=== PATIENT | male | born 2000 | race African-American/Black ===

== ENCOUNTER 2025-06-19 23:06 | Emergency (ER) | payer MEDICAID, OTHER ==
[~2025-06-19] VITALS: Ht 170.2 cm; Wt 71.2 kg
--- NOTE | 2025-06-19 23:24 | ED.PDOC ---
History of Present Illness HPI Comments 25 year-old male presents to the ED with a chief complaint of suprapubic abdominal pain with associated symptoms of dysuria and hematuria as of today. Patient reports noticing blood clots and white matter in urinary output. Patient additionally reports noticing frequent abscesses, as of recently, with one cu rrently located on his buttocks. Patient has no further complaints or modifying factors at this time. Patient denies symptoms of fever, chills, N/V/D, or constipation. REVIEW OF SYSTEMS: General: No fever, no chills, or fatigue HEENT: No sore throat, no earache, no congestion, no neck pain. Cardiac: No chest pain. No palpitations. Lungs: No shortness of breath, no cough. GI: No nausea, no vomiting, no diarrhea, no constipation, + abdominal pain : + dysuria + hematuria. Musculoskeletal: No joint pain , no joint swelling, no extremity edema. Skin: No rash, no itching. Neuro: No headache, no dizziness, no weakness (And as sated in HPI) PHYSICAL EXAM: General: Awake, alert and oriented. No acute distress. Skin: Skin in warm, dry and intact. Appropriate color for ethnicity. HEENT: The head is normocephalic and atraumatic. Conjunctivae are clear without exudates or hemorrhage. Sclera is non-icteric. Eyelids are normal in appearance without swelling or lesions. Oral mucosa is pink and moist Neck: The neck is supple with normal range of motion. No JVD. Cardiac: Heart rate and rhythm are normal. No murmurs, gallops, or rubs are auscultated. Respiratory: No signs of respiratory distress. Lung sounds are clear in all lobes bilaterally without rales, rhonchi, or wheezes. Abdominal: + suprapubic abdominal tenderness. Abdomen is soft, without distention, guarding or rigidity. Bowel sounds are present and normoactive in all four quadrants. Extremities: Lower extremities without edema. Neurological: The patient is awake, alert and oriented to person, place, and time with normal speech. Speech is clear. There is no facial asymmetry. Psychiatric: Appropriate mood and affect. Good judgement and insight. Chief Complaint: Abdominal Pain Time Seen by MD: 23:24 Reviewed Notes: Medications, Allergies Allergies: Coded Allergies: NO KNOWN ALLERGIES (Unverified , 06/19/25) Information Source: Patient Mode of Arrival: Ambulatory Severity: Moderate Timing: Hours Duration: Since onset Past Medical History PAST MEDICAL HISTORY: Denies Surgical History: Denies all surgeries Family History Family History: Reviewed,noncontributory to illness, No family hx of Cancer, No family hx of DM, No family hx of Heart juan, No family hx of HTN, No family hx ofKidney juan, No family hx of Liver juan, No family hx of Lung juan, No family hx of Stroke Social History Smoker: Non-Smoker Alcohol: Denies ETOH Use Drugs: Denies Drug Use Lives In: Home Was a procedure done? Was a procedure done?: No Differential Dx Considerations may include: Differential diagnoses considered include: Abdominal aortic aneurysm, LA, esophageal rupture, intestinal obstruction, mesenteric ischemia, perforated viscus or solid organ rupture, CHF with hepatomegaly, pneumonia, abscess, appendicitis, biliary disease, diverticulitis, gastritis, gastroenteritis, hepatitis, hernia, inflammatory bowel disease, pancreatitis, peptic ulcer disease, urinary tract infection, ureteral colic, constipation, GERD, irritable syndrome, abdominal wall pain, nonspecific abdominal pain, herpes zoster, nephrolithiasis. [ ]Also ruptured ectopic , ovarian torsion/cyst, tubo- ovarian abscess, PID, endometriosis, mittleschmerz. X-Ray, Labs, Meds, VS Vital Signs Date Time Temp Pulse Resp B/P (MAP) Pulse Ox O2 Delivery O2 Flow Rate FiO2 06/20/25 00:52 18 06/20/25 00:52 98.2 85 18 117/76 (90) 98 98.2 06/19/25 23:09 98.4 90 16 109/86 96 98.4 Lab Test 06/20/25 00:51 06/19/25 23:30 Range/Units Urine Color Light-brown Yellow Urine Clarity Ex.turbid Clear Urine pH 6.0 5.0-9.0 Urine Specific Rollins 1.007 1.001-1.035 Urine Protein 1+ H Negative Urine Ketones Negative Negative Urine Blood 3+ H Negative /uL Urine Nitrite Negative Negative Urine Bilirubin Negative Negative Urine Urobilinogen Normal Negative mg/dL Urine Leukocyte Esterase 3+ Negative /uL Urine RBC 148 0 - 3 /hpf Urine WBC Clumps Present None Seen /hpf Urine Microscopic WBC 2004 H 0-3 /HPF Urine Squamous Epithelial Cells None seen <5 /hpf Urine Bacteria None seen None Seen /hpf Urine Glucose Normal Normal mg/dL White Blood Count 15.1 H 4.4-10.8 10^3/uL Red Blood Count 4.75 4.5-5.90 10^6/uL Hemoglobin 15.6 13.5-17.5 g/dL Hematocrit 46.4 41.0-53.0 % Mean Corpuscular Volume 97.7 80.0-100.0 fL Mean Corpuscular Hemoglobin 32.8 H 28.0-32.0 pg Mean Corpuscular Hemoglobin Concent 33.6 32.0-36.0 g/dL Red Cell Distribution Width 14.1 11.8-14.3 % Platelet Count 262 140-450 10^3/uL Mean Platelet Volume 7.6 6.9-10.8 fL Neutrophils (%) (Auto) 81.9 H 37.0-80.0 % Lymphocytes (%) (Auto) 9.6 L 10.0-50.0 % Monocytes (%) (Auto) 6.9 0.0-12.0 % Eosinophils (%) (Auto) 0.9 0.0-7.0 % Basophils (%) (Auto) 0.7 0.0-2.0 % Neutrophils # (Auto) 12.4 H 1.6-8.6 10 ^3/uL Lymphocytes # (Auto) 1.5 0.4-5.4 10 ^3/uL Monocytes # (Auto) 1.0 0-1.3 10 ^3/uL Eosinophils # (Auto) 0.1 0-0.8 10 ^3/uL Basophils # (Auto) 0.1 0-0.2 10 ^3/uL Nucleated Red Blood Cells 0.1 % Sodium Level 141 136-145 mmol/L Potassium Level 3.6 3.5-5.1 mmol/L Chloride Level 104 98-107 mmol/L Carbon Dioxide Level 31 20-31 mmol/L Anion Gap 6 5-15 Blood Urea Nitrogen 7 L 9-23 mg/dL Creatinine 1.14 0.700-1.30 mg/dL Glomerular Filtration Rate Calc 90 >90 mL/min BUN/Creatinine Ratio 6.1 L 10.0-20.0 Serum Glucose 107 H 74-106 mg/dL Calcium Level 9.2 8.7-10.4 mg/dL Current Medications Medications (Trade) Dose Ordered Sig/Kasey Route Start Time Stop Time Status Last Admin Ketorolac Tromethamine (Toradol Injection) 30 mg ONCE ONCE IM 06/19/25 23:30 06/19/25 23:31 DC 06/20/25 00:[address] [address] Ph: [phone] DIAGNOSTIC IMAGING Diagnostic Imaging Report : [id number] Signed PATIENT: LETTY FRANCO ACCT: [id number] UNIT: [id number] : 2000 LOC: ER ROOM / BED: / AGE / SEX: 25 / M ADM STATUS: REG ER SERVICE 22 ORDERING PHYSICIAN: ADALBERTO LYNN MD PROCEDURE(s): ABPL - CT AB PEL WO CON-NO ORAL OR IV REASON: Hematuria ORDER NUMBER(s): [id number], ACCESSION NUMBER(s): [id number] EXAM: CT CT AB PEL WO CON-NO ORAL OR IV History: Hematuria Comparison Study: None TECHNIQUE: Multidetector spiral CT of the abdomen was performed from lung bases to pubic symphysis. Imaging was performed without IV contrast. Axial, coronal and sagittal multiplanar reformats were obtained from the axial data set by the technologist. Radiation Dose : 1. Abdomen/Pelvis: CTDIvol 5.87 mGy, DLP 340.59 mGy*cm. FINDINGS: Evaluation of solid organs is limited due to lack of intravenous contrast use. Lung Bases: No acute or significant lung base finding. Normal heart size. No pleural or pericardial effusion. Liver: The liver is normal in size. No focal lesions. Gallbladder and Biliary Tree: Unremarkable Spleen: Unremarkable Pancreas: The pancreas is grossly normal in appearance. Adrenal Glands: Unremarkable Kidneys: Kidneys are grossly normal without calculi or hydronephrosis. Bladder: Grossly unremarkable for degree of distention. Bowel: The stomach is grossly normal in appearance. Retained colorectal stool. Small bowel and colon are otherwise normal in caliber and distribution. The appendix is normal Ascites: Absent Lymphadenopathy: No mesenteric, retroperitoneal or periportal lymphadenopathy. Abdominal Wall and Mesentery: Unremarkable. Vasculature: The visualized abdominal aorta is normal in size and caliber. Evaluation of abdominal and pelvic vessels is limited due to lack of intravenous contrast. Pelvic Organs: Unremarkable Musculoskeletal: No aggressive focal bony lesions, acute fractures or dislocation. IMPRESSION: 1. No acute abdominal or pelvic findings. 2. Retained colorectal stool. Radiation optimization: All CT scans at this facility use at least one of these dose optimization techniques: automated exposure control mA and/or kV adjustment per patient size (includes targeted exams where dose is matched to clinical indication) or iterative reconstruction. Time of 1ST Reevaluation: 23:24 Reevaluation 1ST: Unchanged Patient Education/Counseling: Need For Follow Up Family Education/Counseling: No Family Present SEPSIS Sepsis Screen Date sepsis recognized/suspect: Jun 19, 2025 Time Sepsis recognized/suspect: 2310 Recent Procedure: No On Antibiotic Therapy: No Respiratory Rate >20: No Heart Rate >90: No Temp<36 C (96.8 F) or >38.3 C: No SBP <90 or MAP <65 mmHG: No New Acute Mental Status Change: No Is the patient on CPAP, BIPAP,: No Physician Orders Ct Ab Pel Wo Con-No Oral Or Iv (06/19/25 23:23) Vital Signs Date Time Temp Pulse Resp B/P (MAP) Pulse Ox O2 Delivery O2 Flow Rate FiO2 06/20/25 00:52 18 06/20/25 00:52 98.2 85 18 117/76 (90) 98 98.2 06/19/25 23:09 98.4 90 16 109/86 96 98.4 Laboratory Tests Test 06/19/25 23:30 White Blood Count 15.1 10^3/uL (4.4-10.8) H Medications Medications Dose Ordered Sig/Kasey Route Start Time Stop Time Status Last Admin Dose Admin Ketorolac Tromethamine 30 mg ONCE ONCE IM 06/19/25 23:30 06/19/25 23:31 DC 06/20/25 00:49 Departure 1 Departure Time of Disposition: 01:30 Impression: Primary Impression: Urinary tract infection Additional Impression: Hematuria Disposition: 01 HOME / SELF CARE / HOMELESS Condition: Stable Additional Instructions: ED DISCHARGE INSTRUCTIONS Instructions: Please read all instructions provided in this packet carefully. Although you have been discharged from the Emergency Department, this does not mean that you have a "clean bill of health". No definitive diagnosis for your symptoms has been made today. It is possible that you are in the process of developing a serious illness. This is why you must return to the ED without fail if any new or worsening symptoms (especially if your symptoms include chest pain, trouble breathing, abdominal pain, fever, headache, confusion, trouble seeing, or trouble walking) It is also very important that you see a primary care provider (PCP) within the next 1-3 days to follow up. If you are unable to get an appointment, return to the ED for re-evaluation. Blood in the Urine: Care Instructions Your Care Instructions Blood in the urine, or hematuria, may make the urine look red, brown, or pink. There may be blood every time you urinate or just from time to time. You cannot always see blood in the urine, but it will show up in a urine test. Blood in the urine may be serious. It should always be checked by a doctor. Your doctor may recommend more tests, including an X-ray, a CT scan, or a cystoscopy (which lets a doctor look inside the urethra and bladder). Blood in the urine can be a sign of another problem. Common causes are bladder infections and kidney stones. An injury to your groin or your genital area can also cause bleeding in the urinary tract. Very hard exercisesuch as running a marathoncan cause blood in the urine. Blood in the urine can also be a sign of kidney disease or cancer in the bladder or kidney. Many cases of blood in the urine are caused by a harmless condition that runs in families. This is called benign familial hematuria. It does not need any treatment. Sometimes your urine may look red or brown even though it does not contain blood. For example, not getting enough fluids (dehydration), taking certain medicines, or having a liver problem can change the color of your urine. Eating foods such as beets, rhubarb, or blackberries or foods with red food coloring can make your urine look red or pink. Follow-up care is a coffey part of your treatment and safety. Be sure to make and go to all appointments, and call your doctor if you are having problems. It's also a good idea to know your test results and keep a list of the medicines you take. When should you call for help? Call your doctor now or seek immediate medical care if: You have symptoms of a urinary infection. For example: You have pus in your urine. You have pain in your back just below your rib cage. This is called flank pain. You have a fever, chills, or body aches. It hurts to urinate. You have groin or belly pain. You have more blood in your urine. Watch closely for changes in your health, and be sure to contact your doctor if: You have new urination problems. You do not get better as expected. Credits for Blood in the Urine: Care Instructions Current as of: May 13, 2023 Author: [employer] Staff Clinical Review Board All [employer] education is reviewed by a team that includes physicians, nurses, advanced practitioners, registered dieticians, and other healthcare professionals. It is very important that you follow up with your primary care physician (PCP). You can call your insurance company or check your insurance card to find out who your PCP is. Or call [phone] to schedule an appointment with a new primary care provider. WHY YOU NEED A PCP: Establishing and regularly seeing a PCP and undergoing routine screenings are vital for maintaining good health. Your PCP acts as your main healthcare partner, helping you stay healthy, manage chronic conditions, and detect potential problems early. Routine screenings, like mammograms or colonoscopies, can catch diseases like cancer early when treatment is often more effective. A screening test is like a quick check-up your doctor does to see if there are any problems starting in your body, even when you feel okay, so they can find them early when they're easier to fix. Why Establish a Relationship with a Primary Care Physician (PCP)? Preventive Care: Your PCP focuses on preventing illness through regular checkups, vaccinations, and health advice tailored to your needs. Chronic Disease Management: If you have a chronic condition, like diabetes or high blood pressure, your PCP can help you manage it effectively through monitoring, medication management, and lifestyle recommendations. Early Detection: Regular visits allow your PCP to track your health over time, identify subtle changes, and order necessary screenings or tests to catch potential problems early. Trusted Resource: Your PCP gets to know you, your medical history, and your concerns, making them a trusted resource for all your health-related questions. Referrals: If you need specialized care, your PCP will refer you to the appropriate specialists and help coordinate your care. Continuity of Care: Your PCP ensures that your healthcare is coordinated, especially after hospital stays or visits to other specialists. Why are Routine Screenings Important? Early Detection: Many serious illnesses like cancer, diabetes and heart disease, can be treated more successfully when detected early. Screenings like lab tests, blood pressure checks, mammograms, colonoscopies, and Pap smears are designed to catch these diseases early. Preventing Disease: Some screenings can actually help prevent diseases from developing. Peace of Mind: Knowing that you are up-to-date on your screenings can provide peace of mind and reduce anxiety about potential health problems. In summary, establishing a relationship with a primary care physician and following their recommendations for routine screenings is important for staying healthy and managing your health effectively. It's an investment in your well- being that can pay off in the long run. e-Prescriptions Sulfamethoxazole W/Trimethopri (Bactrim Ds Tablet) 1 Tab Tb 1 TAB PO BID for 10 Days, #20 TAB Prov: ADALBERTO LYNN MD 06/20/25 Comments Patient well-appearing, nontoxic. Advised prompt follow-up with PCP, return to the ED with any new, worsening or concerning symptoms. Critical Care Note Critical Care Time?: No Stability Stability form required: No Heart Score Heart Score: Heart Score Response (Comments) Value History N/A 0 EKG N/A 0 Age N/A 0 Risk Factors N/A 0 Troponin N/A 0 Total 0 I personally scribed for ADALBERTO LYNN MD ([email or web address]) on 06/19/25 at 23:24. Electronically submitted by Mirian CainLuristicCristin). I personally scribed for ADALBERTO LYNN MD ([email or web address]) on 06/19/25 at 23:32. Electronically submitted by Mirian Atkins ([email or web address]). I personally scribed for ADALBERTO LYNN MD ([email or web address]) on 06/19/25 at 23:33. Electronically submitted by Mirian Atkins ([email or web address]). I personally scribed for ADALBERTO LYNN MD (OPALCH) on 06/20/25 at 00:19. Electronically submitted by Mirian Atkins ([email or web address]). I personally scribed for ADALBERTO LYNN MD ([email or web address]) on 06/20/25 at 00:44. Electronically submitted by Mirian Atkins ([email or web address]). ADALBERTO LYNN MD Jun 19, 2025 23:24
[2025-06-19 23:49] LABS: Chloride 104 mmol/L (98-107); Potassium 3.6 mmol/L (3.5-5.1); Sodium 141 mmol/L (136-145)
[2025-06-19 23:50] LABS: Anion Gap 6 (5-15); Calcium 9.2 mg/dL (8.7-10.4)
[2025-06-19 23:55] LABS: BUN/Creatinine Ratio 6.1 (10.0-20.0)
[2025-06-20 00:05] LABS: Hematocrit 46.4 % (41.0-53.0); Hemoglobin 15.6 g/dL (13.5-17.5); Mean Corpuscular Hemoglobin 32.8 pg (28.0-32.0); Mean Corpuscular Volume 97.7 fL (80.0-100.0); Nucleated Red Blood Cells % 0.1 %
[2025-06-20 00:12] LABS: Blood Urea Nitrogen 7 mg/dL (9-23); Carbon Dioxide 31 mmol/L (20-31); Glucose 107 mg/dL (74-106)
--- NOTE | 2025-06-20 00:39 | DVH ---
EXAM: CT CT AB PEL WO CON-NO ORAL OR IV History: Hematuria Comparison Study: None TECHNIQUE: Multidetector spiral CT of the abdomen was performed from lung bases to pubic symphysis. Imaging was performed without IV contrast. Axial, coronal and sagittal multiplanar reformats were obtained from the axial data set by the technologist. Radiation Dose : 1. Abdomen/Pelvis: CTDIvol 5.87 mGy, DLP 340.59 mGy*cm. FINDINGS: Evaluation of solid organs is limited due to lack of intravenous contrast use. Lung Bases: No acute or significant lung base finding. Normal heart size. No pleural or pericardial effusion. Liver: The liver is normal in size. No focal lesions. Gallbladder and Biliary Tree: Unremarkable Spleen: Unremarkable Pancreas: The pancreas is grossly normal in appearance. Adrenal Glands: Unremarkable Kidneys: Kidneys are grossly normal without calculi or hydronephrosis. Bladder: Grossly unremarkable for degree of distention. Bowel: The stomach is grossly normal in appearance. Retained colorectal stool. Small bowel and colon are otherwise normal in caliber and distribution. The appendix is normal Ascites: Absent Lymphadenopathy: No mesenteric, retroperitoneal or periportal lymphadenopathy. Abdominal Wall and Mesentery: Unremarkable. Vasculature: The visualized abdominal aorta is normal in size and caliber. Evaluation of abdominal and pelvic vessels is limited due to lack of intravenous contrast. Pelvic Organs: Unremarkable Musculoskeletal: No aggressive focal bony lesions, acute fractures or dislocation. IMPRESSION: 1. No acute abdominal or pelvic findings. 2. Retained colorectal stool. Radiation optimization: All CT scans at this facility use at least one of these dose optimization techniques: automated exposure control mA and/or kV adjustment per patient size (includes targeted exams where dose is matched to clinical indication) or iterative reconstruction.
[2025-06-20] MEDS: KETOROLAC TROMETH 30 MG/ML 1ML VIAL IM ONE (00:49)
[2025-06-20 01:24] LABS: Urine Protein, UAD 1+ (Negative); Urine WBC Clumps PRESENT /hpf (None Seen)
[2025-06-20] MEDS ORDERED: BACDST PO (01:33)
[2025-06-20] MEDS: cefTRIAXone SOD 1,000 MG VL ONE (01:35)
[2025-06-20] MEDS: cefTRIAXone W LIDOCAINE 1 GM IM IM ONE (01:41)
[2025-06-20] MEDS: LIDOCAINE 1% HCL (LOCAL ANESTH.) INJ 20ML MDV ONE (02:00)
[2025-06-20 04:45] VITALS: BP 120/78; PULSE 72; RESP 14; TEMP 98; O2SAT 95
== END 2025-06-20 04:46 | disposition home or self-care (01) ==
LOC: ER 23:06
DX: N39.0 Urinary tract infection, site not specified (principal); R31.9 Hematuria, unspecified; Z79.899 Other long term (current) drug therapy
CPT/HCPCS: 36415; 74176; 80048; 81001; 85025; 96372; 99285; J0696; J1885; J2003